=== PATIENT | male | born 1980 | race Caucasian/White ===

== ENCOUNTER → 2018-11-24 | Outpatient (CLI) | payer OTHER ==
--- NOTE | 2018-11-24 12:32 | EXE ---
[place] [address] STRESS ECHOCARDIOGRAM Name: JUAN CARLOS VELIZ Room: [facility]#: [id number] Admission: 11/24/18 Attend Phys: Renato Camarillo MD Discharge: Date of : 76 Date of Service: 11/24/18 1231 Report #: [id number] THIS REPORT FOR: //name// APPROVED REPORT Study performed: 11/24/2018 11:37:05 Exam: Stress Echocardiogram Indication: Chest pain Patient Location: Out-Patient Stress Nurse: Ana Celeste RN Supervising Physician: Amandeep Castillo MD Ht: 6 ft 3 in HR: 82 bpm BP: 120/77 mmHg Medical History Cardiac Risk Factors: HTN Procedure The patient underwent an Exercise Stress Test using the Kevin Protocol. Blood pressure, heart rate, and EKG were monitored. An Echocardiogram was performed by animal health technician in four stages in quad fashion. At peak stress, four selected images were obtained and placed side by side with resting images for comparison. Stress Test Details Stress Test: Exercise stress testing was performed using a Kevin protocol. HR Resting HR: 82 bpm Max Heart Rate (APMHR): 180 bpm Max HR Achieved: 174 bpm Target HR (85% APMHR): 153 bpm % of APMHR: 96 Recovery HR: 110 bpm HR response to stress: Normal HR response to stress BP Resting BP: 120/77 mmHg Max BP: 186/106 mmHg Recovery BP: 154/96 mmHg BP response to stress: Normal blood pressure response to stress. ECG Resting ECG: normal EKG Stress ECG: no ischemic [place] [address] STRESS ECHOCARDIOGRAM Name: JUAN CARLOS VELIZ Room: [facility]#: [id number] Admission: 11/24/18 Attend Phys: Renato Camarillo MD Discharge: Date of : 76 Date of Service: 11/24/18 1231 Report #: [id number] Clinical Reason for Termination: Completed protocol Exercise duration: 8 min 59 sec Highest Stage Achieved: Stage 3: 3.4 mph at 14% grade. Exercise capacity: 10.16 METs Pre-Stress Echo The resting Echocardiogram showed normal left ventricular contractility with an estimated Ejection Fraction of about 55-60%. Normal wall motion in all segments on baseline images. Post-Stress Echo The stress Echocardiogram showed normal left ventricular contractility with an estimated Ejection Fraction of about >70%. Normal augmentation of wall motion in all segments on post stress images. Conclusion Clinical Response: Non-ischemic Exercise Capacity: Average Stress ECG Response: Non-ischemic Stress Echo Images: Non-ischemic Other Information Study Quality: Fair <ELECTRONICALLY SIGNED> By: Amandeep Castillo MD, [facility] 11/24/18 123 123 30 Amandeep Castillo MD, FACC /INF
== END ==
LOC: M.CRD 10:41
DX: R07.9 Chest pain, unspecified (principal); I10 Essential (primary) hypertension; E03.9 Hypothyroidism, unspecified